=== PATIENT | male | born 1985 | race Caucasian/White ===

== ENCOUNTER 2017-01-13 20:44 | Inpatient (IN) | payer OTHER ==
[~2017-01-13] VITALS: Ht 182.9 cm; Wt 93.6 kg
--- NOTE | 2017-01-13 21:47 | NUR ---
REC'D WALK IN PATIENT, AAOX4, C/O LEFT LEG PAIN 11/28. NOTED REDNESS AND SWELLING, HOT TO TOUCH. PT STATES WAS FROM A DOG SCRATCH LAST WEEK. PATIENT STATES HE OUTLINED THE REDNESS ON FRIDAY AND NOTED THE INCREASED REDNESS PASSED THE ORIGINAL OUTLINE. ON RA, BREATHING E/U, NO SOB NOTED. WILL CONTINUE TO MONITOR.
--- NOTE | 2017-01-13 21:50 | NUR ---
DR. FLORES IN TO SEE PT FOR MSE
--- NOTE | 2017-01-13 22:08 | NUR ---
ETHNOGRAPHIC MATERIALS CONSERVATOR AT THE BEDSIDE
--- NOTE | 2017-01-13 22:13 | NUR ---
DUE MEDS GIVEN, TOLERATED WELL.
[2017-01-13 22:17] LABS: BASOPHIL % 0.7 % (0-2); PLATELET COUNT 239 x10^3mcL (130-400); RED CELL DISTRIBUTION WIDTH 12.9 % (11.5-14.5)
[2017-01-13 22:23] LABS: CALCIUM 8.8 mg/dL (8.5-10.1); CARBON DIOXIDE 27.2 mmol/L (21-32); CHLORIDE SERUM 104 mmol/L (98-107); CREATININE SERUM 1.1 mg/dL (0.7-1.3); GFR1 > 60 mL/min; GLUCOSE SERUM 108 mg/dL (74-106); SODIUM SERUM 141 mmol/L (136-145)
[2017-01-13 22:28] LABS: ALBUMIN 3.2 g/dL (3.4-5.0); ALKALINE PHOSPHATASE 106 U/L (46-116); ALT/SGPT 128 U/L (16-63); AST/SGOT 67 U/L (15-37); BILIRUBIN TOTAL 0.3 mg/dL (0.20-1.00); TOTAL PROTEIN, SERUM 7.1 g/dL (6.4-8.2)
[2017-01-13] MEDS ORDERED: BACTRIM DS1 TAB PO (22:56)
[2017-01-13] MEDS ORDERED: TRAMADOL HCL50 MG PO (22:56)
--- NOTE | 2017-01-13 23:20 | NUR ---
PT RESTING IN BED, NO C/O PAIN AT THIS TIME. NS INFUSING AT 160ML/HR TO RT FOREARM, NO REDNESS, SWELLING OR PAIN NOTED. ZITHROMAX 250ML INFUSING AT 250ML/HR. PT TOLERATING WELL. TOOK PICTURES OF CELLULITIS ON LT LE, WARM AND REDNESS NOTED. INFORMED PT OF PENDING LABS AND NEED FOR UA/USC, BED IN LOWEST POSITION, CALL LIGHT WITHIN REACH, WILL CONTINUE TO MONITOR.
--- NOTE | 2017-01-13 23:22 | NUR ---
PROVIDED REPORT TO SHAMAR HERNANDEZ FOR CONTINUITY OF CARE IN [facility]
[2017-01-13 23:41] VITALS: BP 140/84
[2017-01-13 23:42] VITALS: BP 140/84
--- NOTE | 2017-01-13 23:46 | NUR ---
RECEIVED PATIENT FROM ED VIA GUERNEY, ALERT AND ORIENTED GIRLFRIEND AT BEDSIDE, TELE # 16 SR, IV ACCESS TO RFA WNL, NO C/O PAIN AT THIS TIME, ORIENTED PATIENT TO ROOM AND SURROUNDINGS, PICTURE OF LLE CELLULITIS DOCUMENTED, BED IN LOW POSITION, BED RAILS UP X 2, CALL LIGHT WITHIN REACH, WILL ENDORSE CARE TO PRIMARY NURSE SHAMAR HERNANDEZ
[2017-01-14 01:09] LABS: T3 TOTAL 0.92 ng/mL
[2017-01-14 01:17] LABS: PHOSPHOROUS 3.5 mg/dL (2.5-4.9)
[2017-01-14 01:18] LABS: CHOLESTEROL/HDL RATIO 2.6
[2017-01-14 01:26] LABS: FREE T4 1.01 ng/dL (0.76-1.46); FREE THYROXINE INDEX 2.4 ug/dL (1.4-4.5); T4(THYROXINE) 6.9 ug/dL (4.7-13.3)
--- NOTE | 2017-01-14 02:30 | NUR ---
PT RESTING IN BED, ACKNOWLEGED RATE CHANGE. NS INFUSING AT 135ML/HR, IV SITE TO RT FOREARM PATENT, NO REDNESS, SWELLING OR PAIN NOTED. COLLECT UA/USC AND SENT TO LAB. PT NOT C/O PAIN AT THIS TIME, PT DENIES NUMBNESS/ TINGLING IN LE. CALL LIGHT WITHIN REACH, BED IN LOWEST POSITION, WILL CONTINUE TO MONITOR.
[2017-01-14 03:51] LABS: microscopic required? NO
[2017-01-14 04:08] LABS: UA SPECIFIC GRAVITY 1.025 (1.005-1.035); urine erythrocyte NEGATIVE (NEGATIVE)
--- NOTE | 2017-01-14 04:25 | NUR ---
PT SITTING UP IN BED, C/O PAIN 6/10 IN LEFT LE WHEN AMBULATING TO RESTROOM. MEDICATED PT WITH NORCO PER REQUEST, CALL LIGHT WITHIN REACH, BED IN LOWEST POSITION, WILL CONTINUE TO MONITOR.
--- NOTE | 2017-01-14 05:37 | NUR ---
PT RESTING IN BED, MEDICATED PT ONCE FOR LEG PAIN UPON ABULATION. PT RESPONDED WELL TO NORCO, NO MORE C/O PAIN. DRESSING REMAIN CTI TO LT LE. IV SITE REMAINS PATENT, NS INFUSING AT 135ML/HR TO RT FOREARM. BED IN LOWEST POSITION, CALL LIGHT WITHIN REACH, WILL CONTINUE TO MONITOR.
[2017-01-14 05:45] VITALS: BP 134/80
[2017-01-14 06:44] LABS: BASOPHIL % 0.6 % (0-2); PLATELET COUNT 212 x10^3mcL (130-400); RED CELL DISTRIBUTION WIDTH 12.6 % (11.5-14.5)
[2017-01-14 06:49] LABS: CALCIUM 8.6 mg/dL (8.5-10.1); CARBON DIOXIDE 26.9 mmol/L (21-32); CHLORIDE SERUM 104 mmol/L (98-107); CREATININE SERUM 0.9 mg/dL (0.7-1.3); GFR1 > 60 mL/min; GLUCOSE SERUM 104 mg/dL (74-106); POTASSIUM SERUM 4.6 mmol/L (3.5-5.1); SODIUM SERUM 138 mmol/L (136-145)
--- NOTE | 2017-01-14 07:10 | NUR ---
RECEIVED PATIENT SITTING UP IN BED A/O X4, CLEAR SPEECH. TELE # [address], DENIES CHEST PAIN. BREATHING EVEN UNLABBORED ON RA, DENIES SOB, DENIES ANY PAIN. DRESSING TO LLE CDI. IV TO RFA INTACT INFUSING NS AT 135 ML/HR FREE FROM REDNESS AND INFILTRATION. SAFETY PRECAUTIONS MAINTAINED. WILL CONTINUE TO MONITOR.
--- NOTE | 2017-01-14 09:25 | NUR ---
K-PAD APPLIED TO LLE PER MD ORDER.
[2017-01-14 09:40] VITALS: BP 134/64
--- NOTE | 2017-01-14 11:57 | NUR ---
PATIENT C/O SHARP BURNING PAIN 10/28 TO MEDINA NORCO 7.5/325 1 TAB PO Q4H PRN GIVEN AT THIS TIME FOR PAIN PER MD ORDER. ALL NEEDS ATTENDED TO. WILL MONITOR.
--- NOTE | 2017-01-14 13:17 | NUR ---
PATIENT C/O SHARP BURNING PAIN 10/10 TO LLE WHEN AMBULATING. MORPHINE 2 MG IVP Q3H PRN GIVEN AT THIS TIME PER MD ORDER. ALL NEEDS ATTENDED TO. WILL MONITOR.
[2017-01-14 13:45] VITALS: BP 109/59
--- NOTE | 2017-01-14 14:53 | NUR ---
IVF DECREASED TO 90 ML/HR PER MD ORDER.
--- NOTE | 2017-01-14 17:30 | NUR ---
PATIENT SITTING UP AT EDGE OF BED EATING DINNER, NO DISTRESS NOTED. PATIENT STATES PAIN TO LLE IS "OKAY". ALL NEEDS ATTENDED TO DURING SHIFT. WILL MONITOR.
[2017-01-14 17:32] VITALS: BP 116/70
--- NOTE | 2017-01-14 19:00 | NUR ---
REPORT GIVEN TO KRYSTLE HERNANDEZ, ALL QUESTIONS AND CONCERNS ADDRESSED. ALL CARES ENDORSED.
--- NOTE | 2017-01-14 19:20 | NUR ---
RECEIVED PT IN BED TALKING TO VISITORS. HE IS ALERT,ORIENTED X4. NO SOB. LLE WOUND W/ DRESSING CDI. REDNESS AND SWELLING TO LLE SLIGHTLY IMPROVED. PT W/ NO C/O PAIN AT THIS TIME. W/ IVF NS AT 90 CC/HR INFUSING WELL VIA RTFA.CALL LIGHT W/IN REACH.
[2017-01-14 20:44] VITALS: BP 127/63
--- NOTE | 2017-01-15 04:17 | NUR ---
PT SLEPT THROUGH THE NIGHT. HE WAS MEDICATED FOR PAIN TO LLE X1 . DRESSING TO LLE CHANGED X1 THIS SHIFT. K-PAD KEPT IN PLACE. W/ IVF NS AT 90 CC/HR INFUSING WELL VIA RTAC.
[2017-01-15 04:21] VITALS: BP 109/63
[2017-01-15 06:20] LABS: CALCIUM 8.9 mg/dL (8.5-10.1); CARBON DIOXIDE 30.2 mmol/L (21-32); CHLORIDE SERUM 105 mmol/L (98-107); CREATININE SERUM 0.9 mg/dL (0.7-1.3); GFR1 > 60 mL/min; GLUCOSE SERUM 109 mg/dL (74-106); SODIUM SERUM 141 mmol/L (136-145)
[2017-01-15 06:33] LABS: BASOPHIL % 0.7 % (0-2); PLATELET COUNT 207 x10^3mcL (130-400)
--- NOTE | 2017-01-15 07:32 | NUR ---
A+OX4, TELE 16, NSR, COMPLAINING OF LLE PAIN, DECLINES PAIN MEDS AT THIS TIME, PULSES MODERATE AND EQUAL BRENDA, LLE EDEMA, LUNG SOUNDS CLEAR, TOLERATING RA, BOWEL SOUNDS ACTIVE, VOIDING, AMBULATORY, K PAD TO LLE, LLE WOUND WITH IODOFORM PACKING AND GUAZE DRESSING, CDI, IV IN RFA WITH NS @ 90 ML/HR, SITE WNL, RBC 4.37, HCT 40.
--- NOTE | 2017-01-15 08:52 | NUR ---
PT RESTING IN BED, NO RESPIRATORY DISTRESS NOTED, STATES LLE PAIN IS TOLERABLE AT THIS TIME.
[2017-01-15 09:06] VITALS: BP 109/63
[2017-01-15 09:20] VITALS: BP 108/60
[2017-01-15] MEDS ORDERED: LAC PO (09:24)
[2017-01-15] MEDS ORDERED: AUG500 PO (09:28)
--- NOTE | 2017-01-15 10:51 | NUR ---
PT COMPLAINING OF 7/10 LLE PAIN AFTER AMBULATING TO BATHROOM AND AROUND ROOM, NORCO GIVEN. PT DRESSING ON LLE WOUND CHANGED WITH GAUZE AND TAPE.
[2017-01-15] MEDS ORDERED: NORCO1 TA2 PO (10:58)
--- NOTE | 2017-01-15 12:21 | NUR ---
PT GIVEN DISCHARGE INSTRUCTIONS AND VERBALIZED UNDERSTANDING, IV REMOVED WITH CATHETER INTACT, TELE BOX REMOVED AND RETURNED TO [facility] STATION, PT GIVEN WOUND CARE SUPPLIES.
--- NOTE | 2017-01-15 12:35 | NUR ---
PT AMBULATED OFF THE UNIT WITH ALL BELONGINGS ESCORTED BY TWISTER IN.
== END 2017-01-15 12:45 | disposition home or self-care (01) | DRG 872 ==
LOC: ED 20:44 → DU 22:55
PROVIDERS: Emergency Medicine; ADMIT Family Medicine
PROC: 0H9LXZZ Drainage of Left Lower Leg Skin, External Approach (ICD-10-PCS; principal; 2017-01-13)
DX: A41.9 Sepsis, unspecified organism (principal); L03.116 Cellulitis of left lower limb; E44.0 Moderate protein-calorie malnutrition; E86.0 Dehydration; R74.0 Nonspecific elevation of levels of transaminase and lactic acid dehydrogenase [LDH]; Z68.28 Body mass index [BMI] 28.0-28.9, adult
CPT/HCPCS: 83880; 84439; J0295; J0456; J2001; J2270; J2405; J2543; J7030; J7040; J7050; Q0092